=== PATIENT | female | born 1980 | race African-American/Black ===

== ENCOUNTER 2017-08-21 22:22 | Emergency (ER) | payer SELFPAY ==
[2017-08-21] MEDS ORDERED: Acetaminophen/Codeine 30-300mg Tablet ONE (22:38)
== END 2017-08-21 22:45 | disposition home or self-care (01) ==
LOC: NAV ERS 22:22
DX: M70.61 Trochanteric bursitis, right hip (principal); F41.9 Anxiety disorder, unspecified; E05.90 Thyrotoxicosis, unspecified without thyrotoxic crisis or storm
CPT/HCPCS: 99283